=== PATIENT | female | born 2000 | race Caucasian/White ===

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

== ENCOUNTER → 2023-08-10 | Outpatient (REF) | payer OTHER ==
[~2023-08-10] MED LIST changes: -CEFD1CAP8 PO; +CEFD300C42 PO; +CIPR500T39 PO; +PYRI1TAB5 PO
[2023-08-10 17:46] LABS: APPEARANCE, URINE CLOUDY (CLEAR); BACTERIA, URINE AUTO 1+ (NEGATIVE); BILIRUBIN, URINE AUTO NEGATIVE (NEGATIVE); BLOOD, URINE BLOOD 1+ (NEGATIVE); COLOR, URINE AMBER (YELLOW); GLUCOSE, URINE (UA) AUTO NEGATIVE (NEGATIVE); KETONE, URINE AUTO NEGATIVE (NEGATIVE); LEUKOCYTE ESTERASE, URINE AUTO 3+ (NEGATIVE); MUCUS, URINE MODERATE (NEGATIVE); NITRITE, URINE AUTO NEGATIVE (NEGATIVE); PROTEIN, URINE AUTO 1+ mg/dL (NEGATIVE); RBC, URINE AUTO 7 /HPF (0-3); SPECIFIC GRAVITY URINE AUTO 1.023 (1.002-1.035); SQUAMOUS EPITHELIAL CELL UR AU 37 /HPF (0-6); UROBILINOGEN, URINE AUTO 0.2 mg/dL (0.0-2.0); WBC, URINE AUTO 10 /HPF (0-3)
== END ==
LOC: M LAB REF 16:36
PROVIDERS: ATTEND Physician Assistant Medical
DX: N39.0 Urinary tract infection, site not specified (principal)

== ENCOUNTER → 2023-09-04 | Outpatient (REF) | payer OTHER ==
[2023-09-04 12:00] LABS: APPEARANCE, URINE CLOUDY (CLEAR); BACTERIA, URINE AUTO NEGATIVE (NEGATIVE); BILIRUBIN, URINE AUTO NEGATIVE (NEGATIVE); BLOOD, URINE BLOOD 1+ (NEGATIVE); COLOR, URINE YELLOW (YELLOW); GLUCOSE, URINE (UA) AUTO NEGATIVE (NEGATIVE); KETONE, URINE AUTO NEGATIVE (NEGATIVE); LEUKOCYTE ESTERASE, URINE AUTO TRACE (NEGATIVE); MUCUS, URINE SMALL (NEGATIVE); NITRITE, URINE AUTO NEGATIVE (NEGATIVE); PROTEIN, URINE AUTO NEGATIVE (NEGATIVE); RBC, URINE AUTO 2 /HPF (0-3); SPECIFIC GRAVITY URINE AUTO 1.023 (1.002-1.035); SQUAMOUS EPITHELIAL CELL UR AU 30 /HPF (0-6); UROBILINOGEN, URINE AUTO 0.2 mg/dL (0.0-2.0); WBC, URINE AUTO 5 /HPF (0-3)
== END ==
LOC: M LAB REF 11:33
PROVIDERS: ATTEND Physician Assistant Medical
DX: N39.0 Urinary tract infection, site not specified (principal)

== ENCOUNTER 2023-09-23 13:55 | Emergency (ER) | payer OTHER ==
[~2023-09-23] VITALS: Ht 165.1 cm; Wt 51.7 kg
[~2023-09-23 13:55] MED LIST changes: +CEFD1CAP9 PO; -CEFD300C42 PO
[2023-09-23] MEDS ORDERED: IBUP-1114 PO (14:01)
[2023-09-23 14:47] LABS: BASO % 0.8 % (0.0-1.0); EOS # 0.1 10^3/uL (0.0-0.5); EOS % 1.1 % (0.0-3.0); HEMATOCRIT 34.6 % (36.0-47.0); HEMOGLOBIN 11.8 g/dl (12.0-15.5); LYMPH # 1.7 10^3/uL (1.5-5.0); LYMPH % 35.7 % (24.0-44.0); MEAN CORPUSCULAR HEMOGLOBIN 31.7 pg (27.0-33.0); MEAN CORPUSCULAR HGB CONC 34.1 g/dl (32.0-36.5); MONO # 0.4 10^3/uL (0.0-0.8); MONO % 7.4 % (2.0-8.0); NEUTROPHILS # 2.6 10^3/uL (1.5-8.5); NEUTROPHILS % 54.8 % (36.0-66.0); PLATELET COUNT, AUTOMATED 330 10^3/uL (150-450); RED BLOOD COUNT 3.72 10^6/uL (4.00-5.40); WHITE BLOOD COUNT 4.8 10^3/uL (4.0-10.0)
[2023-09-23] MEDS ORDERED: NS 1,000 ML IV ONE (15:40)
[2023-09-23 16:58] LABS: CHLAMYDIA DNA AMPLIFICATION NEGATIVE (NEGATIVE); GC DNA AMPLIFICATION NEGATIVE (NEGATIVE)
[2023-09-23] MEDS ORDERED: metroNIDAZOLE (FLAGYL) 500MG TABLET PO ONE (17:05)
[2023-09-23] MEDS ORDERED: METR-265 PO (17:06)
[2023-09-23 17:10] VITALS: BP 132/63; TEMP 98.3; O2SAT 98
== END 2023-09-23 17:15 | disposition home or self-care (01) ==
LOC: M ED 13:55
DX: N76.0 Acute vaginitis (principal); R10.9 Unspecified abdominal pain; Z79.1 Long term (current) use of non-steroidal anti-inflammatories (NSAID); Z79.2 Long term (current) use of antibiotics

== ENCOUNTER 2024-01-20 18:48 | Emergency (ER) | payer OTHER, SELFPAY ==
[~2024-01-20] VITALS: Ht 165.1 cm; Wt 52.5 kg
[~2024-01-20 18:48] MED LIST changes: +IBUP-1114 PO; +METR-265 PO
[2024-01-20 22:21] VITALS: BP 141/89; TEMP 98.8; O2SAT 98
== END 2024-01-21 00:24 | disposition left against medical advice (07) ==
LOC: M ED 18:48
DX: Z53.21 Procedure and treatment not carried out due to patient leaving prior to being seen by health care provider (principal)

== ENCOUNTER 2024-03-31 13:36 | Emergency (ER) | payer OTHER, SELFPAY ==
[~2024-03-31] VITALS: Ht 162.6 cm; Wt 54.8 kg
[~2024-03-31 13:36] MED LIST changes: +ONDA-282 PO; -ONDA4TAB6 PO
[2024-03-31 14:41] LABS: BASO # 0.1 10^3/uL (0.0-0.2); BASO % 1.1 % (0.0-1.0); EOS # 0.1 10^3/uL (0.0-0.5); EOS % 0.9 % (0.0-3.0); HEMATOCRIT 33.8 % (36.0-47.0); HEMOGLOBIN 11.4 g/dl (12.0-15.5); LYMPH # 2.1 10^3/uL (1.5-5.0); LYMPH % 26.1 % (24.0-44.0); MEAN CORPUSCULAR HEMOGLOBIN 30.6 pg (27.0-33.0); MEAN CORPUSCULAR HGB CONC 33.7 g/dl (32.0-36.5); MEAN CORPUSCULAR VOLUME 90.9 fl (80.0-96.0); MONO # 0.5 10^3/uL (0.0-0.8); MONO % 6.4 % (2.0-8.0); NEUTROPHILS # 5.1 10^3/uL (1.5-8.5); NEUTROPHILS % 65.4 % (36.0-66.0); PLATELET COUNT, AUTOMATED 285 10^3/uL (150-450); RED BLOOD COUNT 3.72 10^6/uL (4.00-5.40); WHITE BLOOD COUNT 7.9 10^3/uL (4.0-10.0)
[2024-03-31 14:59] LABS: BLOOD UREA NITROGEN 9 MG/DL (9-23); CALCIUM LEVEL 9.2 MG/DL (8.5-10.1); CARBON DIOXIDE LEVEL 29 MMOL/L (20-31); CHLORIDE LEVEL 105 MMOL/L (98-107); CREATININE FOR GFR 0.61 MG/DL (0.55-1.30); GLOMERULAR FILTRATION RATE > 60.0 (>60); GLUCOSE, FASTING 97 MG/DL (60-100); HCG, SERUM QUANTITATIVE < 2.6 MIU/ML (<4.2); POTASSIUM SERUM 4.2 MMOL/L (3.5-5.1); SODIUM LEVEL 138 MMOL/L (136-145)
[2024-03-31 18:22] VITALS: BP 122/64; TEMP 98; O2SAT 100
== END 2024-03-31 18:23 | disposition home or self-care (01) ==
LOC: M ED 13:36
DX: N92.0 Excessive and frequent menstruation with regular cycle (principal); F17.200 Nicotine dependence, unspecified, uncomplicated; Z87.442 Personal history of urinary calculi

== ENCOUNTER 2024-12-02 15:14 | Emergency (ER) | payer OTHER ==
[~2024-12-02] VITALS: Ht 165.1 cm; Wt 63.7 kg
[2024-12-02 15:19] VITALS: BP 138/83; TEMP 97.7; O2SAT 100
== END 2024-12-03 02:11 | disposition left against medical advice (07) ==
LOC: M ED 15:14
DX: Z53.21 Procedure and treatment not carried out due to patient leaving prior to being seen by health care provider (principal)